=== PATIENT | female | born 1970 | race Caucasian/White ===

== ENCOUNTER → 2019-01-02 | Outpatient (CLI) | payer OTHER, SELFPAY ==
[2019-01-01 09:20] VITALS: BMI 23.0
== END | disposition home or self-care (01) ==
LOC: LABSPEC 14:14
PROVIDERS: Family Provider Nurse Practitioner Adult Health; PCP Nurse Practitioner Adult Health; Referring Provider Physician Assistant Medical; Visit Provider Physician Assistant Medical
DX: J02.9 Acute pharyngitis, unspecified (principal)
CPT/HCPCS: 87070

== ENCOUNTER → 2019-03-07 09:32 | Outpatient (CLI) | payer OTHER, SELFPAY ==
[2019-01-01 09:20] VITALS: BMI 23.0
--- NOTE | 2019-03-07 09:37 | CT_ITS ---
STUDY: CT ABDOMEN AND PELVIS WITHOUT CONTRAST REASON FOR EXAM: Female, 49 years old. Pelvic pain, bladder pressure RADIATION DOSAGE (If Supplied By Facility): CTDIvol = ( 6.04 ) mGy, DLP = ( 258.20 ) mGycm TECHNIQUE: Transaxial images were obtained from the dome of the diaphragm to the symphysis pubis without oral contrast, and without intravenous contrast. Sagittal and coronal images were reconstructed. Individualized dose optimization techniques were used for this CT. COMPARISON: None. FINDINGS: The visualized lung bases are unremarkable. The visualized portions of the heart are within normal limits. Normal liver. Normal gallbladder and extrahepatic biliary system. Normal spleen. Normal pancreas. Normal bilateral adrenal glands. Bilateral nonobstructing renal stones. No hydronephrosis, ureteral stone or ureteral dilatation. Normal visualized stomach. Normal small intestine. Normal colon. There is non-visualization of the appendix. Normal abdominal aorta. Normal inferior vena cava. Normal retroperitoneum. Normal urinary bladder. There is a small umbilical hernia containing fat. Mild levoscoliosis of the lumbar spine with degenerative disc disease. CT/Abdomen/Pelvis without Cont IMPRESSION: Bilateral nonobstructing renal stones. Electronically Signed: Dane Guerin MD at 10:02 EST Tel , Service support ,
== END ==
PROVIDERS: Family Provider Nurse Practitioner Adult Health; PCP Nurse Practitioner Adult Health; Referring Provider Nurse Practitioner Adult Health; Visit Provider Nurse Practitioner Adult Health
DX: R10.9 Unspecified abdominal pain (principal); N20.0 Calculus of kidney
CPT/HCPCS: 74176

== ENCOUNTER → 2019-09-20 12:13 | Outpatient (CLI) | payer OTHER, SELFPAY ==
[2019-01-01 09:20] VITALS: BMI 23.0
[2019-09-20 15:44] LABS: CRP, High Sensitivity Cardiac 0.64 mg/L
[2019-09-20 15:56] LABS: Erythrocyte Sedimentation Rate 4 mm/hr (0-20)
[2019-09-22 13:10] LABS: ANTINUCLEAR ANTIBODIES DIRECT Negative (Negative); Anti-dsDNA Ab 1 IU/mL (0-9)
== END ==
PROVIDERS: PCP Nurse Practitioner Adult Health; Visit Provider Family Medicine
DX: R21 Rash and other nonspecific skin eruption (principal)
CPT/HCPCS: 36415; 85652; 86038; 86141; 86225

== ENCOUNTER → 2020-03-26 15:22 | Outpatient (CLI) | payer OTHER, SELFPAY ==
[2019-01-01 09:20] VITALS: BMI 23.0
== END ==
PROVIDERS: PCP Nurse Practitioner Adult Health; Visit Provider Family Medicine
DX: Z20.828 Contact with and (suspected) exposure to other viral communicable diseases (principal)
CPT/HCPCS: 87635; U0003

== ENCOUNTER → 2020-03-29 12:13 | Outpatient (CLI) | payer OTHER, SELFPAY ==
[2019-01-01 09:20] VITALS: BMI 23.0
[2020-04-01 17:06] LABS: EBV Acute VCA IgM < 36.0 U/mL (0.0-35.9); EBV-VCA IgG > 600.0 U/mL (0.0-17.9)
== END ==
PROVIDERS: PCP Family Medicine; Referring Provider Family Medicine; Visit Provider Family Medicine
DX: B34.9 Viral infection, unspecified (principal)
CPT/HCPCS: 36415; 86664; 86665

== ENCOUNTER 2020-07-05 14:06 | Outpatient (RCR) | payer OTHER, SELFPAY ==
[2019-01-01 09:20] VITALS: BMI 23.0
[2020-07-05] MEDS: COVID-19 VACC, MRNA(PFIZER)/PF 30 MCG/0.3 ML SYRINGE IM (08:38)
[2020-07-26] MEDS: COVID-19 VACC, MRNA(PFIZER)/PF 30 MCG/0.3 ML SYRINGE IM (08:28)
== END 2020-07-05 23:59 ==
LOC: IMMUN 14:06
PROVIDERS: PCP Family Medicine; Visit Provider Family Medicine
DX: Z23 Encounter for immunization (principal)
CPT/HCPCS: 0001A; 0002A; 91300

== ENCOUNTER → 2022-05-01 | Outpatient (CLI) | payer OTHER, SELFPAY ==
[2022-05-01 10:27] LABS: Hemoglobin A1c 5.1 % (3.8-5.6)
[2022-05-01 10:55] LABS: AST(SGOT) 12 U/L (15-37); Alanine Aminotransfer ALT/SGPT 23 U/L (13-56); Albumin, Serum 3.3 g/dL (3.2-5.0); Alkaline Phosphatase 47 U/L (45-117); Anion Gap 7 (5-15); BUN 14 mg/dL (7-18); BUN/Creat Ratio 21.4 RATIO (10-20); Calcium,Total 9.1 mg/dL (8.5-10.1); Chloride 106 mmol/L (98-107); Cholesterol 166 mg/dL (200); Creatinine, Serum 0.65 mg/dL (0.55-1.02); EST Glomerular Filtration Rate 101 mL/min (>60); Est Glom Filt Rate - Afr Amer 122 mL/min (>60); Globulin 3.3 g/dL (2.2-4.2); Glucose 92 mg/dL (74-106); High Density Lipoprotein 65 mg/dL; Potassium 4.3 mmol/L (3.5-5.1); Protein, Total 6.6 g/dL (6.4-8.2); Sodium Level 138 mmol/L (136-145); Triglycerides 48 mg/dL; Very Low Density Lipoprotein 10 mg/dL (5-40)
[2022-05-05 14:21] LABS: HPV APTIMA, High Risk Negative (Negative); HPV Reflexed? YES, CHARGE PATIENT
== END | disposition home or self-care (01) ==
PROVIDERS: PCP Family Medicine; Visit Provider Nurse Practitioner Family
DX: Z01.419 Encounter for gynecological examination (general) (routine) without abnormal findings (principal); Z13.220 Encounter for screening for lipoid disorders; Z13.1 Encounter for screening for diabetes mellitus
CPT/HCPCS: 36415; 80053; 80061; 83036; 87624; 88175; G0145

== ENCOUNTER → 2022-05-07 | Outpatient (CLI) | payer OTHER, SELFPAY ==
--- NOTE | 2022-05-07 07:57 | BI_ITS ---
MAMMOGRAPHY - BILATERAL SCREENING REASON FOR EXAM: Female, 52 years old. Routine annual screening examination. PERTINENT HISTORY: Grandmother with breast cancer. TECHNIQUE: Digital bilateral breast ashly (3D mammographic acquisition) in the CC and MLO projections. 2-D mediolateral oblique (MLO) and craniocaudad (CC) views of both breasts were obtained. CAD: Full Field Digital Mammography with Computer Added Detection was performed. COMPARISON: No comparison mammograms available at this time. If any prior films become available, an addendum to this report can be generated. FINDINGS: Breast Composition: The breasts are extremely dense, which lowers the sensitivity of mammography. There are no dominant masses or suspicious calcifications. No other significant abnormalities are identified. BI/SCRN MAMM (CAD)W/ASHLY BILAT IMPRESSION: Negative screening mammogram. Yearly followup mammogram recommended. (A) ASSESSMENT CATEGORY: BIRADS Category 1: Negative. A letter regarding these results will be sent to the patient by the facility within 30 days. Approximately 10% of breast cancers are not detected by mammography. A normal mammogram should not delay biopsy of a clinically suspicious abnormality. [id number] Electronically Signed: Natan Hernandez MD at 9:01 EST ,
== END | disposition home or self-care (01) ==
LOC: OPBI 07:54
PROVIDERS: PCP Family Medicine; Visit Provider Nurse Practitioner Family
DX: Z12.31 Encounter for screening mammogram for malignant neoplasm of breast (principal); Z80.3 Family history of malignant neoplasm of breast
CPT/HCPCS: 77063; 77067

== ENCOUNTER 2023-01-13 11:49 | Inpatient (IN) | payer OTHER, SELFPAY ==
[2023-01-13 11:50] VITALS: BP 121/68; PULSE 80; RESP 20; TEMP 36.4; O2SAT 100; BMI 23.1
--- NOTE | 2023-01-13 12:09 | EX.ED.DYSGE1 ---
HPI History of Present Illness Chief Complaint: Abd Pain Informant: patient Onset/Context/Timing Onset: Days (2 days) Context: Gradual Onset Timing: Waxes and wanes Current Severity: Moderate Maximum Severity: Severe Narrative Narrative: Patient presents with 2-day history of left lower quadrant abdominal pain. No fever or chills. No nausea or vomiting. Patient was seen by PCP in the office this morning with significant tenderness on exam and sent to ER for further work-up. Patient states her urine was checked in the office and showed no sign of infection or blood. PFSH PFSH Medical History Hay fever Home Medications azithromycin 250 mg tablet (Zithromax Z-Won) See Rx Instructions PO .COMPLEX #6 tabs 01/01/19 [Rx Last Taken Unknown] ibuprofen 100 mg tablet (Advil) 200 mg PO Q6H 01/01/19 [History Last Taken Unknown] Allergy/AdvReac Type Severity Reaction Status Date / Time Penicillins [PCN] Allergy Rash Verified 01/13/23 12:45 Surgical History H/O section History of appendectomy History of bladder surgery Social History Smoking Status: Never smoker alcohol intake: never ROS ROS ED Constitutional Constitutional ED: Denies chills or fever(s) Eyes Eyes: Denies change in vision or discharge from eye(s) ENT ENT ED: Denies discharge from eye(s), rhinorrhea or sore throat Cardiovascular Cardiovascular: Denies chest pain or palpitations Respiratory/Chest Respiratory/Chest: Denies cough or dyspnea Gastrointestinal Gastrointestinal: Reports abdominal pain; Denies diarrhea, nausea or vomiting Musculoskeletal Musculoskeletal: Denies back pain or extremity pain Integumentary Denies Abrasions or rash Neurologic Neurologic: Denies headache(s) or weakness Psychiatric Psychiatric: Denies anxiety or depression Allergic/Immunologic Allergic/Immunologic ED: Denies lip swelling or urticaria EXAM Physical Exam Const Vital Signs: 01/13/23 11:50 Temperature 97.5 F L Temperature Source Temporal Pulse Rate 80 Respiratory Rate 20 H Blood Pressure 121/68 H Blood Pressure Mean 85 Pulse Ox 100 Oxygen Delivery Method Room Air Positive well nourished and well developed General Appearance ED: well developed HEENT Reports normocephalic and head/scalp atraumatic Eyes PERRL and EOMs intact bilaterally Neck supple Chest Wall inspection of chest normal and palpation of chest normal Resp normal respiratory effort and clear to auscultation bilaterally Cardio regular rate and regular rhythm GI GI Narrative: Moderate tenderness in the left lower quadrant. Hypoactive but present bowel sounds are noted. No palpable masses. Palpation: soft Back/Spine no CVA tenderness Extremity normal to inspection Neuro oriented x3 and no sensory deficits noted Sensorium / Orientation: alert Motor Exam: strength 5/5 throughout Psych mental status grossly normal Skin no rashes or lesions noted MDM MDM MDM Narrative Medical decision making narrative: Patient placed on ekg monitor. Patient given morphine and Zofran for pain and nausea. IV fluids initiated. Labwork obtained to evaluate for leukocytosis, anemia, and electrolyte derangement. CT scan of the abdomen pelvis with contrast obtained to evaluate for possible diverticulitis, obstruction, perforation. History & Record Review Discussion w/independent historian: Patient Lab Data Attestation: I reviewed the patient's lab results. Labs: Laboratory Results - last 24 hr 01/13/23 12:05 WBC 15.1 H RBC 4.57 Hgb 13.8 Hct 41.8 MCV 91.5 MCH 30.2 MCHC 33.0 RDW Std Deviation 44.7 H RDW Coeff of Johny 13.2 Plt Count 276 MPV 10.6 Immature Gran % (Auto) 0.400 Neut % (Auto) 75.2 H Lymph % (Auto) 13.2 L Zavala % (Auto) 10.5 H Eos % (Auto) 0.4 Baso % (Auto) 0.3 Absolute Neuts (auto) 11.3 H Absolute Lymphs (auto) 1.99 Nucleated RBC % 0 Differential Comment SCANNED Diff Path Review May foll Sodium 136 Potassium 3.7 Chloride 108 H Carbon Dioxide 24.0 Anion Gap 4 L BUN 15 Creatinine 0.71 Estim Creat Clear Calc 69.94 Est GFR (MDRD) Af Amer 112 Est GFR (MDRD) Non-Af 92 BUN/Creatinine Ratio 21.2 H Glucose 95 Calcium 8.6 Radiography Diagnostic Testing: Clinical Impression(s) from Imaging Studies Abdomen/Pelvis CT 01/13/23 13:42 IMPRESSION: Abnormal submucosal thickening of the mid and distal sigmoid colon with pericolonic inflammatory stranding, and microperforation. Findings consistent with an acute diverticulitis. No demonstrated abscess. However, neoplasm could have a similar appearance and further evaluation of the colon with colonoscopy is recommended once the acute inflammation has resolved. No suspicious solid or abnormality, punctate nonobstructing right renal stone 3.3 cm right pelvic cyst likely ovarian in origin, dedicated pelvic ultrasound recommended for further evaluation Electronically Signed: Homar Alex MD at 14:19 EDT Reading Location ID and State: [facility] / [place] , Service support , Treatment and Re-Evaluation :: CBC was elevated white count of 15.1 with 75% neutrophils. Hemoglobin is normal at 13.8. Chemistry studies are unremarkable with normal renal function. CT scan with contrast reveals diverticulitis with small microperforation. No evidence of abscess. There is also a 3.3 cm right pelvic cyst likely ovarian. Test results discussed with Dr. Recio, on-call for surgery. She reviewed the images. She asked the patient be admitted to the medicine service with IV antibiotics. Given her allergy to penicillin she will be covered with Cipro and Flagyl. Hospitalist will see the patient. Discharge Plan Triage Chief Complaint: Abd Pain ED Provider: Maritza Riddle Dx/Rx/DC Orders Clinical Impression: Diverticulitis Prescriptions: No Action ibuprofen [Advil] 100 mg tablet 200 mg PO Q6H azithromycin [Zithromax Z-Won] 250 mg tablet See Rx Instructions PO .COMPLEX Qty: 6 0RF Rx Instructions: take 500 mg today (day 1), then 250 mg for 4 days (days 2-5) PO Primary Care Provider: Khoa Diaz Referrals: Khoa Diaz MD [Primary Care Provider] - Disposition Disposition: Acute Care Hospital [facility]
[2023-01-13 12:21] LABS: Absolute Lymphocyte Count 1.99 X10^3/uL (0.83-4.51); Absolute Neutrophil Count 11.3 X10^3/uL (2.0-7.7); Basophil# 0.04 X10^3/uL; Basophil% 0.3 % (0-1); Eosinophil# 0.06 X10^3/uL; Eosinophils% 0.4 % (0-5); Hematocrit 41.8 % (37-47); Hemoglobin 13.8 g/dL (12.0-15.0); Lymphocyte # 1.99 X10^3/ul (0.83-4.51); Lymphocyte % 13.2 % (19-41); Mean Corpuscular Hgb 30.2 pg (27.0-32.0); Mean Corpuscular Volume 91.5 fL (81-99); Mean Platelet Vol. 10.6 fl (6.2-12.0); Monocyte# 1.58 X10^3/uL; Monocyte% 10.5 % (0-10); NRBC Flagged by Analyzer 0 % (0-5); Neutrophil # 11.33 X10^3/uL (2.7-7.7); Neutrophil % 75.2 % (47-70); POSITIVE DIFFERENTIAL YES; Platelet Count 276 K/mm3 (150-450); RBC Distribution Width CV 13.2 % (11.6-14.6); RBC Distribution Width SD 44.7 fl (35.1-43.9); Red Blood Count 4.57 M/mm3 (4.2-5.4); White Blood Count 15.1 K/mm3 (4.4-11.0)
[2023-01-13 12:33] LABS: Differential Indicated SCAN CRITERIA MET
[2023-01-13 12:38] LABS: Anion Gap 4 (5-15); BUN 15 mg/dL (7-18); BUN/Creat Ratio 21.2 RATIO (10-20); Calcium,Total 8.6 mg/dL (8.5-10.1); Chloride 108 mmol/L (98-107); Creatinine, Serum 0.71 mg/dL (0.55-1.02); EST Glomerular Filtration Rate 92 mL/min (>60); Est Glom Filt Rate - Afr Amer 112 mL/min (>60); Estimated Creatinine Clearance 69.94 ml/min; Glucose 95 mg/dL (74-106); Potassium 3.7 mmol/L (3.5-5.1); Sodium Level 136 mmol/L (136-145)
[2023-01-13] MEDS: Ondansetron 4 MG/2 ML Vial IV ×2 (12:41→18:45)
[2023-01-13] MEDS: 0.9% Normal Saline (1000mL) 1,000 ML 150 ML IV (12:41)
[2023-01-13] MEDS: Morphine 4 MG/ML Syringe IV (12:41)
--- NOTE | 2023-01-13 13:42 | CT_ITS ---
STUDY: CT ABDOMEN AND PELVIS WITH CONTRAST REASON FOR EXAM: Female, 52 years old. Left lower quadrant pain RADIATION DOSAGE (If Supplied By Facility): CTDIvol = ( 6.42 ) mGy, DLP = ( 299.44 ) mGycm TECHNIQUE: Transaxial images were obtained from the dome of the diaphragm to the symphysis pubis with oral contrast. Oral and amp; IV Gastrografin and amp; 100mL Isovue-300 was administered. Sagittal and coronal images were reconstructed. Individualized dose optimization techniques were used for this CT. COMPARISON: 03/07/2019 FINDINGS: The visualized lung bases are unremarkable. The visualized portions of the heart are within normal limits. Normal liver. Normal gallbladder and extrahepatic biliary system. Normal spleen. Normal pancreas. Normal bilateral adrenal glands. No obstructive uropathy, or suspicious solid renal lesion, there is a punctate nonobstructing right renal stone. Normal visualized stomach. Normal small intestine. Retained stool noted in the majority of the colon. In the mid and distal sigmoid colon there is abnormal submucosal thickening with pericolonic inflammatory stranding consistent with a likely acute diverticulitis. However, a neoplasm could have a similar appearance and further evaluation with colonoscopy is recommended once the acute inflammatory changes have resolved. There is evidence of microperforation but no abscess. There is non-visualization of the appendix. Normal abdominal aorta. Normal inferior vena cava. Normal retroperitoneum. Normal urinary bladder. Uterus is absent, there is a 3.3 cm right adnexal region cyst. Given the patient''s age, a dedicated pelvic ultrasound is recommended for further evaluation Normal abdominal wall. Normal osseous structures. CT/Abdomen/Pelvis WITH Contrast IMPRESSION: Abnormal submucosal thickening of the mid and distal sigmoid colon with pericolonic inflammatory stranding, and microperforation. Findings consistent with an acute diverticulitis. No demonstrated abscess. However, neoplasm could have a similar appearance and further evaluation of the colon with colonoscopy is recommended once the acute inflammation has resolved. No suspicious solid or abnormality, punctate nonobstructing right renal stone 3.3 cm right pelvic cyst likely ovarian in origin, dedicated pelvic ultrasound recommended for further evaluation Electronically Signed: Homar Alex MD at 14:19 EDT ,
[2023-01-13 13:44] LABS: Differential Comment SCANNED
--- NOTE | 2023-01-13 15:26 | HP.PCM.HOS_ITS ---
HPI - General General Date of Admission: 01/13/23 Date of Service: 01/13/23 Chief Complaint: Abdominal pain HPI Narrative SURAJ TORRES, is a 52 F who presents [facility] Medical History Hay fever Home Medications azithromycin 250 mg tablet (Zithromax Z-Won) See Rx Instructions PO .COMPLEX #6 tabs 01/01/19 [Rx Last Taken Unknown] ibuprofen 100 mg tablet (Advil) 200 mg PO Q6H 01/01/19 [History Last Taken Unknown] Allergy/AdvReac Type Severity Reaction Status Date / Time Penicillins [PCN] Allergy Rash Verified 01/13/23 12:45 Surgical History H/O section History of appendectomy History of bladder surgery Social History Smoking Status: Never smoker alcohol intake: never Vital Signs Vital Signs Vital Signs: 01/13/23 11:50 Temperature 97.5 F L Temperature Source Temporal Pulse Rate 80 Respiratory Rate 20 H Blood Pressure 121/68 H Blood Pressure Mean 85 Pulse Ox 100 Oxygen Delivery Method Room Air Weight Weight: 55.61 kg Body Mass Index (BMI) 23.1 Results Lab / Micro Data 01/13/23 12:05 01/13/23 12:05 Labs: Laboratory Results - last 24 hr 01/13/23 12:05: WBC 15.1 H, RBC 4.57, Hgb 13.8, Hct 41.8, MCV 91.5, MCH 30.2, MCHC 33.0, RDW Std Deviation 44.7 H, RDW Coeff of Johny 13.2, Plt Count 276, MPV 10.6, Immature Gran % (Auto) 0.400, Neut % (Auto) 75.2 H, Lymph % (Auto) 13.2 L, Dane % (Auto) 10.5 H, Eos % (Auto) 0.4, Baso % (Auto) 0.3, Absolute Neuts (auto) 11.3 H, Absolute Lymphs (auto) 1.99, Nucleated RBC % 0, Differential Comment SCANNED, Diff Path Review August, Sodium 136, Potassium 3.7, Chloride 108 H, Carbon Dioxide 24.0, Anion Gap 4 L, BUN 15, Creatinine 0.71, Estim Creat Clear Calc 69.94, Est GFR (MDRD) Af Amer 112, Est GFR (MDRD) Non-Af 92, BUN/Creatinine Ratio 21.2 H, Glucose 95, Calcium 8.6 Radiology Impression Abdomen/Pelvis CT 01/13/23 13:42 IMPRESSION: Abnormal submucosal thickening of the mid and distal sigmoid colon with pericolonic inflammatory stranding, and microperforation. Findings consistent with an acute diverticulitis. No demonstrated abscess. However, neoplasm could have a similar appearance and further evaluation of the colon with colonoscopy is recommended once the acute inflammation has resolved. No suspicious solid or abnormality, punctate nonobstructing right renal stone 3.3 cm right pelvic cyst likely ovarian in origin, dedicated pelvic ultrasound recommended for further evaluation Electronically Signed: Homar Alex MD at 14:19 EDT Reading Location ID and State: [address] [place] [address] , Service support , Assessment & Plan Assessment/Plan (1) Diverticulitis: (2) Leukocytosis: Charges/Coding Visit Charges Inpatient E&M: 00143 Init Hosp L2
--- NOTE | 2023-01-13 15:26 | PCM.HP.STD ---
HPI - General General Date of Admission: 01/13/23 Date of Service: 01/13/23 Chief Complaint: Abdominal pain HPI Narrative SURAJ TORRES, is a 52 F who presented to the emergency department at [facility] on 01/13/2023 complaining of a 2-day history of left lower quadrant pain. She saw her primary care physician this morning and had significant tenderness on exam so they referred her to the emergency department for further work-up. UA was reportedly obtained in the office and was unremarkable. She has had no fever or chills, no nausea or vomiting. She is never had anything like this previously. Abdominal surgeries consist of an appendectomy when she was young, hysterectomy, and 2 sections. Vital signs on presentation demonstrated temperature of 97.5, heart rate 80, blood pressure 121/68, respiratory to 20 and oxygen saturations were 100% on room air. CBC showed a leukocytosis at 15.1 with a 75.2% neutrophilia. Her chemistry panel was unremarkable. CT of the abdomen pelvis was performed and demonstrated abnormal submucosal thickening at the mid and distal sigmoid colon with pericolonic inflammatory stranding and microperforation consistent with acute diverticulitis and no abscess as well as a 3.3 cm right pelvic cyst that appears to originate from the ovary. [facility] Medical History Hay fever Home Medications azithromycin 250 mg tablet (Zithromax Z-Won) See Rx Instructions PO .COMPLEX #6 tabs 01/01/19 [Rx Last Taken Unknown] ibuprofen 100 mg tablet (Advil) 200 mg PO Q6H 01/01/19 [History Last Taken Unknown] Allergy/AdvReac Type Severity Reaction Status Date / Time Penicillins [PCN] Allergy Rash Verified 01/13/23 12:45 Family History (Updated 01/13/23 @ 16:[address] Jovanna Lino DO) Other Breast cancer Hypertension Leukemia Ovarian cancer Surgical History (Updated 01/13/23 @ 16:[address] Jovanna Lino DO) H/O section H/O: hysterectomy History of appendectomy History of bladder surgery Social History (Updated 01/13/23 @ 16:[address] Jovanna Lino DO) household members: spouse housing: house number of children: 2 Smoking Status: Never smoker alcohol intake: never substance use type: does not use ROS Constitutional Constitutional: Denies anorexia, change in weight, chills, fatigue, fever(s), malaise, night sweats, weakness or other Eyes Eyes: Denies blurry vision, change in eye color, change in vision, discharge from eye(s), double vision, erythema, eye pain, loss of vision or other ENT HEENT: Denies abnormal hearing, dysphagia, ear pain, epistaxis, headache(s), hearing loss, nasal congestion, nasal discharge, post nasal drip, sinus pressure, sore throat or other Cardiovascular Cardiovascular: Denies chest pain, claudication, dyspnea on exertion, edema, lightheadedness, orthopnea, palpitations, paroxysmal nocturnal dyspnea, rapid heart rate, syncope or other Respiratory/Chest Respiratory/Chest: Denies cough, dyspnea, excessive phlegm production, hemoptysis, productive cough, shortness of breath at rest, shortness of breath with exertion, wheezing or other Gastrointestinal Gastrointestinal: Reports abdominal pain and nausea; Denies coffee ground emesis, constipation, diarrhea, dyspepsia, hematemesis, hematochezia, loose stools, melena, vomiting or other Genitourinary Genitourinary: Denies burning urination, difficulty urinating, dysuria, hematuria, nocturia, urinary frequency, urinary hesitancy, urinary incontinence, urinary urgency or other Musculoskeletal Musculoskeletal: Denies arthralgias, back pain, joint pain, joint stiffness, joint swelling, myalgias, neck pain or other Neurologic Neurologic: Denies abnormal gait, abnormal speech, confusion, disequilibrium, dizziness, focal weakness, headache(s), numbness, paresthesias, seizure-like activity, seizures, syncope, tingling, tremor(s) or other Psychiatric Psychiatric: Denies anxiety, depression, homicidal ideation, suicidal ideation or other Endocrine Endocrinology: Denies change in body appearance, cold intolerance, excessive sweating, heat intolerance, polydipsia, polyuria or other Hematologic/Lymphatic Hematologic/Lymphatic: Denies anemia, easy bleeding, easy bruising, lymphadenopathy or other Allergic/Immunologic Allergic/Immunologic: Denies rhinitis, hives, eczemia, asthma or other Vital Signs Vital Signs Vital Signs: 01/13/23 11:50 Temperature 97.5 F L Temperature Source Temporal Pulse Rate 80 Respiratory Rate 20 H Blood Pressure 121/68 H Blood Pressure Mean 85 Pulse Ox 100 Oxygen Delivery Method Room Air Weight Weight: 55.61 kg Body Mass Index (BMI) 23.1 Physical Exam Const alert, oriented x3, average body habitus, healthy appearing and well nourished Constitutional Narrative: Very pleasant, middle-aged, white female, appears mildly uncomfortable, nontoxic appearing, at bedside General Appearance: cooperative HEENT normocephalic, head/scalp atraumatic, hearing grossly normal bilaterally and moist oral mucous membranes HEENT Narrative: Dentition is good, Mallampati is 2, no thrush Resp normal respiratory effort, no retractions, no use of accessory muscles and clear to auscultation bilaterally Auscultation: Negative for rales, rhonchi or wheezes Cardio regular rate, regular rhythm, S1 normal heart sound, S2 normal heart sound, no murmurs, no rub, no gallops and no clicks GI normal to inspection, nondistended, normoactive bowel sounds and soft to palpation GI Narrative: Tenderness with guarding left lower quadrant Extremity no clubbing, cyanosis or edema Extremity Narrative: Pedal pulses are 2+ Neuro oriented x3, CN's II-XII intact bilaterally, moves all extremities and no focal motor deficits Speech: speech normal Psych affect normal Psych Narrative: Very pleasant, interacts appropriately, eye contact is good Results Lab / Micro Data Attestation: I reviewed the patient's lab results. 01/13/23 12:05 01/13/23 12:05 Labs: Laboratory Results - last 24 hr 01/13/23 12:05: WBC 15.1 H, RBC 4.57, Hgb 13.8, Hct 41.8, MCV 91.5, MCH 30.2, MCHC 33.0, RDW Std Deviation 44.7 H, RDW Coeff of Johny 13.2, Plt Count 276, MPV 10.6, Immature Gran % (Auto) 0.400, Neut % (Auto) 75.2 H, Lymph % (Auto) 13.2 L, [place] % (Auto) 10.5 H, Eos % (Auto) 0.4, Baso % (Auto) 0.3, Absolute Neuts (auto) 11.3 H, Absolute Lymphs (auto) 1.99, Nucleated RBC % 0, Differential Comment SCANNED, Diff Path Review August, Sodium 136, Potassium 3.7, Chloride 108 H, Carbon Dioxide 24.0, Anion Gap 4 L, BUN 15, Creatinine 0.71, Estim Creat Clear Calc 69.94, Est GFR (MDRD) Af Amer 112, Est GFR (MDRD) Non-Af 92, BUN/Creatinine Ratio 21.2 H, Glucose 95, Calcium 8.6 Radiology Impression Abdomen/Pelvis CT 01/13/23 13:42 IMPRESSION: Abnormal submucosal thickening of the mid and distal sigmoid colon with pericolonic inflammatory stranding, and microperforation. Findings consistent with an acute diverticulitis. No demonstrated abscess. However, neoplasm could have a similar appearance and further evaluation of the colon with colonoscopy is recommended once the acute inflammation has resolved. No suspicious solid or abnormality, punctate nonobstructing right renal stone 3.3 cm right pelvic cyst likely ovarian in origin, dedicated pelvic ultrasound recommended for further evaluation Electronically Signed: Homar Alex MD at 14:19 EDT Reading Location ID and State: [address] [place] [address] , Service support , Assessment & Plan Assessment/Plan (1) Diverticulitis: (2) Leukocytosis: (3) Pelvic cyst: PLAN: Plan Diverticulitis -CT shows mid and distal sigmoid colon with pericolonic inflammatory stranding and microperforation with no abscess -N.p.o. -IV pain meds -IV fluids -Antiemetics as needed -General surgery consultation--> Dr. Hoffmann and aware Leukocytosis -Secondary to above -Repeat CBC in a.m. after initiation of antibiotics 3 cm right pelvic cyst -Suspected to be ovarian in origin -Would recommend outpatient follow-up with ultrasound -Patient has a family history of ovarian cancer in her mother DVT prophylaxis -Subcu Lovenox CODE STATUS Full code Charges/Coding Visit Charges Inpatient E&M: 93378 Init Hosp L2
[2023-01-13] MEDS: metroNIDAZOLE 500 MG/100 ML BAG 100 MG IV ×2 (16:00→22:17)
[2023-01-13] MEDS: HYDROmorphone 0.5 MG/0.5 ML SYRINGE IV (16:28)
[2023-01-13] MEDS: Ciprofloxacin 400 MG/200 ML BAG 200 MG IV ×2 (17:07→21:08)
[2023-01-13 17:08] VITALS: BP 116/68; PULSE 70; RESP 16; TEMP 36.2; O2SAT 100
--- NOTE | 2023-01-13 17:23 | EX.PCM.CON.S ---
Assessment & Plan Assessment/Plan (1) Diverticulitis of colon with perforation: (2) Leukocytosis: PLAN: Plan Did review CT abdomen pelvis personally and with the patient and her . We will plan for conservative management including n.p.o./IV fluids, IV antibiotics. We will keep patient n.p.o. until her pain improves and white blood cell count also improved. Discussed with patient that if she were to have increased white blood, increased pain or fevers she may need more urgent surgery. Patient will need colonoscopy in the future. Patient was agreeable with plan. Cecile Recio M.D. Pager: [phone] [facility] [address] [place] [address], [facility], [address] [place] [address] Office: [phone] HPI Consult Data Date of Consult: 01/13/23 HPI Narrative Reason for Consultation: Sigmoid diverticulitis with microperforation HPI Narrative: SURAJ TORRES, is a 52 F who presents to the ER due to left lower quadrant pain. Patient states she had this pain for 2 days but did get worse this morning. Patient's had a CT abdomen pelvis showed sigmoid diverticulitis with microperforation. Patient's never had previous colonoscopy or episode of diverticulitis. Patient did state that she ate nuts prior to the onset of pain. Patient had some nausea today after getting the pain meds otherwise denies any nausea or vomiting. Patient's abdominal surgeries include robotic hysterectomy, , laparoscopic appendectomy. Currently patient complaining of left-sided abdominal pain. Patient did get Cipro and Flagyl in the ER due to to penicillin allergy. Patient states her grandparent and uncle/aunt on her father side had colon cancer in their 70s to 80s. [facility] Medical History (Updated 01/13/23 @ 19:[address] Cecile Recio MD) Hay fever Home Medications NK 01/13/23 [History Last Taken Unknown] Allergy/AdvReac Type Severity Reaction Status Date / Time Penicillins [PCN] Allergy Rash Verified 01/13/23 12:45 Family History (Updated 01/13/23 @ 16:[address] Jovanna Lino DO) Other Breast cancer Hypertension Leukemia Ovarian cancer Surgical History (Updated 01/13/23 @ 16:[address] Jovanna Lino DO) H/O section H/O: hysterectomy History of appendectomy History of bladder surgery Social History (Updated 01/13/23 @ 16:[address] Jovanna Lino DO) household members: spouse housing: house number of children: 2 Smoking Status: Never smoker alcohol intake: never substance use type: does not use ROS Constitutional Constitutional: Reports anorexia; Denies fever(s) Eyes Eyes: Denies blurry vision ENT HEENT: Denies dysphagia Cardiovascular Cardiovascular: Denies chest pain Respiratory/Chest Respiratory/Chest: Denies cough Gastrointestinal Gastrointestinal: Reports abdominal pain and nausea; Denies melena or vomiting Genitourinary Genitourinary: Denies dysuria Musculoskeletal Musculoskeletal: Denies joint swelling Integumentary Integumentary: Denies jaundice Neurologic Neurologic: Denies dizziness Psychiatric Psychiatric: Denies anxiety or depression Hematologic/Lymphatic Hematologic/Lymphatic: Denies easy bleeding Physical Exam Const alert, oriented x3 and no apparent distress HEENT normocephalic and head/scalp atraumatic Resp normal respiratory effort Cardio regular rate GI soft to palpation; Negative for non-distended Palpation: tender LLQ (/Left mid abdomen, no peritoneal signs); Negative for guarding Extremity no clubbing, cyanosis or edema Neuro CN's II-XII intact bilaterally Psych mental status grossly normal Lab / Micro Data 01/13/23 12:05 01/13/23 12:05 Labs: Laboratory Results - last 24 hr 01/13/23 12:05: WBC 15.1 H, RBC 4.57, Hgb 13.8, Hct 41.8, MCV 91.5, MCH 30.2, MCHC 33.0, RDW Std Deviation 44.7 H, RDW Coeff of Johny 13.2, Plt Count 276, MPV 10.6, Immature Gran % (Auto) 0.400, Neut % (Auto) 75.2 H, Lymph % (Auto) 13.2 L, [place] % (Auto) 10.5 H, Eos % (Auto) 0.4, Baso % (Auto) 0.3, Absolute Neuts (auto) 11.3 H, Absolute Lymphs (auto) 1.99, Nucleated RBC % 0, Differential Comment SCANNED, Diff Path Review August, Sodium 136, Potassium 3.7, Chloride 108 H, Carbon Dioxide 24.0, Anion Gap 4 L, BUN 15, Creatinine 0.71, Estim Creat Clear Calc 69.94, Est GFR (MDRD) Af Amer 112, Est GFR (MDRD) Non-Af 92, BUN/Creatinine Ratio 21.2 H, Glucose 95, Calcium 8.6 Radiology Impression Abdomen/Pelvis CT 01/13/23 13:42 IMPRESSION: Abnormal submucosal thickening of the mid and distal sigmoid colon with pericolonic inflammatory stranding, and microperforation. Findings consistent with an acute diverticulitis. No demonstrated abscess. However, neoplasm could have a similar appearance and further evaluation of the colon with colonoscopy is recommended once the acute inflammation has resolved. No suspicious solid or abnormality, punctate nonobstructing right renal stone 3.3 cm right pelvic cyst likely ovarian in origin, dedicated pelvic ultrasound recommended for further evaluation Electronically Signed: Homar Alex MD at 14:19 EDT Reading Location ID and State: [address] [place] [address] , Service support , Charges/Coding Visit Charges Inpatient E&M: 95836 Init Hosp L3
[2023-01-13 17:55] VITALS: BMI 23.1
[2023-01-13 18:02] VITALS: BP 105/58; PULSE 70; RESP 18; TEMP 36.8
[2023-01-13] MEDS: Lactated Ringers 1,000 ML 100 ML IV (18:44)
[2023-01-13 19:50] VITALS: O2SAT 98
[2023-01-13 20:20] VITALS: BP 98/43; PULSE 98; RESP 16; TEMP 37.1; O2SAT 99
[2023-01-14 02:20] VITALS: BP 108/41; PULSE 75; RESP 16; TEMP 36.9; O2SAT 98
[2023-01-14] MEDS: Lactated Ringers 1,000 ML 100 ML IV ×2 (06:01→20:00)
[2023-01-14] MEDS: metroNIDAZOLE 500 MG/100 ML BAG 100 MG IV ×3 (06:02→21:10)
[2023-01-14] MEDS: HYDROmorphone 0.5 MG/0.5 ML SYRINGE IV ×4 (06:02→20:09)
[2023-01-14 06:37] LABS: Absolute Lymphocyte Count 1.96 X10^3/uL (0.83-4.51); Absolute Neutrophil Count 9.4 X10^3/uL (2.0-7.7); Basophil# 0.05 X10^3/uL; Basophil% 0.4 % (0-1); Eosinophil# 0.07 X10^3/uL; Eosinophils% 0.5 % (0-5); Hematocrit 36.5 % (37-47); Hemoglobin 12.2 g/dL (12.0-15.0); Lymphocyte # 1.96 X10^3/ul (0.83-4.51); Lymphocyte % 15.3 % (19-41); Mean Corp Hgb Conc 33.4 g/dL (32-36); Mean Corpuscular Hgb 30.9 pg (27.0-32.0); Mean Corpuscular Volume 92.4 fL (81-99); Mean Platelet Vol. 11.2 fl (6.2-12.0); Monocyte# 1.28 X10^3/uL; NRBC Flagged by Analyzer 0 % (0-5); Neutrophil # 9.44 X10^3/uL (2.7-7.7); Neutrophil % 73.4 % (47-70); Platelet Count 242 K/mm3 (150-450); RBC Distribution Width CV 13.2 % (11.6-14.6); RBC Distribution Width SD 44.9 fl (35.1-43.9); Red Blood Count 3.95 M/mm3 (4.2-5.4); White Blood Count 12.9 K/mm3 (4.4-11.0)
[2023-01-14 07:29] VITALS: O2SAT 97
[2023-01-14 07:29] LABS: ALB/GLOB Ratio 0.7 RATIO (0.9-2.4); AST(SGOT) 18 U/L (15-37); Alanine Aminotransfer ALT/SGPT 38 U/L (13-56); Albumin, Serum 2.7 g/dL (3.2-5.0); Alkaline Phosphatase 61 U/L (45-117); Anion Gap 7 (5-15); BUN 9 mg/dL (7-18); BUN/Creat Ratio 14.6 RATIO (10-20); Calcium,Total 8.5 mg/dL (8.5-10.1); Chloride 109 mmol/L (98-107); Creatinine, Serum 0.62 mg/dL (0.55-1.02); EST Glomerular Filtration Rate 108 mL/min (>60); Est Glom Filt Rate - Afr Amer 131 mL/min (>60); Estimated Creatinine Clearance 80.09 ml/min; Globulin 3.7 g/dL (2.2-4.2); Glucose 78 mg/dL (74-106); Magnesium 2.2 mg/dL (1.6-2.6); Phosphorus 2.2 mg/dL (2.5-4.9); Potassium 3.9 mmol/L (3.5-5.1); Protein, Total 6.4 g/dL (6.4-8.2); Sodium Level 138 mmol/L (136-145)
--- NOTE | 2023-01-14 07:56 | PCM.PN.HOSP ---
Reason for Visit Reason for Visit: Diagnoses Elevated white blood cell count, unspecified (01/13/23) Diverticulitis of large intestine with perforation and abscess without bleeding (01/13/23) Diverticulitis of intestine, part unspecified, without perforation or abscess without bleeding (01/13/23) Subjective Subjective Has felt a little dizzy after getting her pain medication but pain is improving, intermittently nauseous, no other specific complaints Objective Data Objective Data Vital Signs: Vital Signs Temp Pulse Resp BP Pulse Ox O2 Del Method 98.5 F 75 16 108/41 L 97 Room Air 01/14/23 02:20 01/14/23 02:20 01/14/23 02:20 01/14/23 02:20 01/14/23 07:29 01/14/23 07:29 Oxygen Delivery Method Room Air Weight: 55.61 kg Body Mass Index (BMI) 23.1 Intake & Output: Intake and Output for Last 24 Hours 01/12/23 01/13/23 01/14/23 23:59 23:59 23:59 Intake Total 1850 / 1850 675.00 / 675.00 Balance 1850 / 1850 675.00 / 675.00 Lab / Micro Data 01/14/23 05:40 01/14/23 05:40 Labs: Laboratory Results - last 24 hr 01/13/23 12:05: WBC 15.1 H, RBC 4.57, Hgb 13.8, Hct 41.8, MCV 91.5, MCH 30.2, MCHC 33.0, RDW Std Deviation 44.7 H, RDW Coeff of Johny 13.2, Plt Count 276, MPV 10.6, Immature Gran % (Auto) 0.400, Neut % (Auto) 75.2 H, Lymph % (Auto) 13.2 L, [place] % (Auto) 10.5 H, Eos % (Auto) 0.4, Baso % (Auto) 0.3, Absolute Neuts (auto) 11.3 H, Absolute Lymphs (auto) 1.99, Nucleated RBC % 0, Differential Comment SCANNED, Diff Path Review August, Sodium 136, Potassium 3.7, Chloride 108 H, Carbon Dioxide 24.0, Anion Gap 4 L, BUN 15, Creatinine 0.71, Estim Creat Clear Calc 69.94, Est GFR (MDRD) Af Amer 112, Est GFR (MDRD) Non-Af 92, BUN/Creatinine Ratio 21.2 H, Glucose 95, Calcium 8.6 01/14/23 05:40: WBC 12.9 H, RBC 3.95 L, Hgb 12.2, Hct 36.5 L, MCV 92.4, MCH 30.9, MCHC 33.4, RDW Std Deviation 44.9 H, RDW Coeff of Johny 13.2, Plt Count 242, MPV 11.2, Immature Gran % (Auto) 0.400, Neut % (Auto) 73.4 H, Lymph % (Auto) 15.3 L, [place] % (Auto) 10.0, Eos % (Auto) 0.5, Baso % (Auto) 0.4, Absolute Neuts (auto) 9.4 H, Absolute Lymphs (auto) 1.96, Nucleated RBC % 0, Sodium 138, Potassium 3.9, Chloride 109 H, Carbon Dioxide 22.0, Anion Gap 7, BUN 9, Creatinine 0.62, Estim Creat Clear Calc 80.09, Est GFR (MDRD) Af Amer 131, Est GFR (MDRD) Non-Af 108, BUN/Creatinine Ratio 14.6, Glucose 78, Calcium 8.5, Phosphorus 2.2 L, Magnesium 2.2, Total Bilirubin 1.00, AST 18, ALT 38, Alkaline Phosphatase 61, Total Protein 6.4, Albumin 2.7 L, Globulin 3.7, Albumin/Globulin Ratio 0.7 L Radiography Diagnostic Testing: Radiology Impression Abdomen/Pelvis CT 01/13/23 13:42 IMPRESSION: Abnormal submucosal thickening of the mid and distal sigmoid colon with pericolonic inflammatory stranding, and microperforation. Findings consistent with an acute diverticulitis. No demonstrated abscess. However, neoplasm could have a similar appearance and further evaluation of the colon with colonoscopy is recommended once the acute inflammation has resolved. No suspicious solid or abnormality, punctate nonobstructing right renal stone 3.3 cm right pelvic cyst likely ovarian in origin, dedicated pelvic ultrasound recommended for further evaluation Electronically Signed: Homar Alex MD at 14:19 EDT Reading Location ID and State: [address] [place] [address] , Service support , Physical Exam Narrative General: Alert, oriented, no apparent distress HEENT: Atraumatic, normocephalic Eyes: Anicteric, normal conjunctiva, extraocular movements grossly intact Neck: Supple Respiratory: Clear to auscultation bilaterally, normal respiratory effort Cardiovascular: Regular rate and rhythm GI: Soft, nondistended, no rebound, guarding, rigidity Extremities: No edema Musculoskeletal: Moving all extremities Neuro: No overt focal neurological deficits Skin: No rashes appreciated Psych: Cooperative Assessment & Plan Assessment/Plan (1) Diverticulitis: (2) Leukocytosis: (3) Pelvic cyst: PLAN: Plan Diverticulitis -CT shows mid and distal sigmoid colon with pericolonic inflammatory stranding and microperforation with no abscess -N.p.o. -IV pain meds -IV fluids -Antiemetics as needed -General surgery consultation--> Dr. Hoffmann and aware -01/14: Evaluated by general surgery, no acute surgical indication at this time, patient n.p.o. until clinically improving, IV fluids, supportive care, continue IV antibiotics, will blood cell count is improving today Leukocytosis -Secondary to above -Repeat CBC in a.m. after initiation of antibiotics -01/14: White blood cell count is improving 3 cm right pelvic cyst -Suspected to be ovarian in origin -Would recommend outpatient follow-up with ultrasound -Patient has a family history of ovarian cancer in her mother DVT prophylaxis -Subcu Lovenox CODE STATUS Full code Charges/Coding Visit Charges Inpatient E&M: 57109 Subs Hosp L1
[2023-01-14 08:00] VITALS: BP 104/59; PULSE 76; RESP 16; TEMP 36.8; O2SAT 98
--- NOTE | 2023-01-14 08:35 | PCM.PN.SRG ---
Subjective Subjective Patient is a planes of left lower quadrant pain. Much better after pain meds. Patient states it may be a little bit better. Patient with blood counts 12.9 from 15. Objective Data Objective Data Vital Signs: Vital Signs Temp Pulse Resp BP Pulse Ox O2 Del Method 98.5 F 75 16 108/41 L 97 Room Air 01/14/23 02:20 01/14/23 02:20 01/14/23 02:20 01/14/23 02:20 01/14/23 07:29 01/14/23 07:29 Oxygen Delivery Method Room Air Weight: 122 lb 9.6 oz Body Mass Index (BMI) 23.1 Intake & Output: Intake and Output for Last 24 Hours 01/12/23 01/13/23 01/14/23 23:59 23:59 23:59 Intake Total 1850 / 1850 675.00 / 675.00 Balance 1850 / 1850 675.00 / 675.00 Lab / Micro Data 01/14/23 05:40 01/14/23 05:40 Labs: Laboratory Results - last 24 hr 01/13/23 12:05: WBC 15.1 H, RBC 4.57, Hgb 13.8, Hct 41.8, MCV 91.5, MCH 30.2, MCHC 33.0, RDW Std Deviation 44.7 H, RDW Coeff of Johny 13.2, Plt Count 276, MPV 10.6, Immature Gran % (Auto) 0.400, Neut % (Auto) 75.2 H, Lymph % (Auto) 13.2 L, [place] % (Auto) 10.5 H, Eos % (Auto) 0.4, Baso % (Auto) 0.3, Absolute Neuts (auto) 11.3 H, Absolute Lymphs (auto) 1.99, Nucleated RBC % 0, Differential Comment SCANNED, Diff Path Review May , Sodium 136, Potassium 3.7, Chloride 108 H, Carbon Dioxide 24.0, Anion Gap 4 L, BUN 15, Creatinine 0.71, Estim Creat Clear Calc 69.94, Est GFR (MDRD) Af Amer 112, Est GFR (MDRD) Non-Af 92, BUN/Creatinine Ratio 21.2 H, Glucose 95, Calcium 8.6 01/14/23 05:40: WBC 12.9 H, RBC 3.95 L, Hgb 12.2, Hct 36.5 L, MCV 92.4, MCH 30.9, MCHC 33.4, RDW Std Deviation 44.9 H, RDW Coeff of Johny 13.2, Plt Count 242, MPV 11.2, Immature Gran % (Auto) 0.400, Neut % (Auto) 73.4 H, Lymph % (Auto) 15.3 L, [place] % (Auto) 10.0, Eos % (Auto) 0.5, Baso % (Auto) 0.4, Absolute Neuts (auto) 9.4 H, Absolute Lymphs (auto) 1.96, Nucleated RBC % 0, Sodium 138, Potassium 3.9, Chloride 109 H, Carbon Dioxide 22.0, Anion Gap 7, BUN 9, Creatinine 0.62, Estim Creat Clear Calc 80.09, Est GFR (MDRD) Af Amer 131, Est GFR (MDRD) Non-Af 108, BUN/Creatinine Ratio 14.6, Glucose 78, Calcium 8.5, Phosphorus 2.2 L, Magnesium 2.2, Total Bilirubin 1.00, AST 18, ALT 38, Alkaline Phosphatase 61, Total Protein 6.4, Albumin 2.7 L, Globulin 3.7, Albumin/Globulin Ratio 0.7 L Radiography Diagnostic Testing: Radiology Impression Abdomen/Pelvis CT 01/13/23 13:42 IMPRESSION: Abnormal submucosal thickening of the mid and distal sigmoid colon with pericolonic inflammatory stranding, and microperforation. Findings consistent with an acute diverticulitis. No demonstrated abscess. However, neoplasm could have a similar appearance and further evaluation of the colon with colonoscopy is recommended once the acute inflammation has resolved. No suspicious solid or abnormality, punctate nonobstructing right renal stone 3.3 cm right pelvic cyst likely ovarian in origin, dedicated pelvic ultrasound recommended for further evaluation Electronically Signed: Homar Alex MD at 14:19 EDT Reading Location ID and State: [facility] / [place] , Service support , Physical Exam Const oriented x3 and no apparent distress Resp normal respiratory effort Cardio regular rate GI soft to palpation Palpation: tender LLQ (And left mid abdomen, no peritoneal signs) Assessment & Plan Assessment/Plan (1) Diverticulitis of colon with perforation: (2) Leukocytosis: PLAN: Plan Continue n.p.o./IV fluids until pain improved/resolved Continue Cipro and Flagyl IV Leukocytosis improved 12.9 from 15 Continue ambulation Cecile Recio M.D. Pager: [phone] [facility] [address] [place] [address], [facility], [address] [place] [address] Office: [phone] Charges/Coding Visit Charges Inpatient E&M: 57132 Subs Hosp L2
[2023-01-14] MEDS: Ciprofloxacin 400 MG/200 ML BAG 200 MG IV ×2 (09:29→23:12)
[2023-01-14] MEDS: Enoxaparin 40 MG/0.4 ML Syringe SC (09:32)
[2023-01-14 11:19] LABS: Pathologist Review Reviewed
[2023-01-14] MEDS: Sodium Phosphate/Na Biphos 30 MMOL in 0.9% Normal Saline (250mL Bag) 250 ML 62.5 MMOL IV (11:32)
--- NOTE | 2023-01-14 11:50 | CASEMGMT ---
RN SAVANNA Face to Face with patient for initial transition planning/care coordination assessment. RN SAVANNA introduced self and role at [facility]. Patient lying in bed, alert and oriented. Patient willing to participate in assessment and is able to answer all questions appropriately. Care providers, pharmacy, and demographics verified. Patient wishes to discharge home. Patient states she has no further needs or concerns at this time. CM to follow for discharge planning needs that may arise. PCP:Joe Specialists:Pt denies Preferred Pharmacy:[facility] Insurance:[employer] Prescription Benefit: yes LNOK:Ricardo Sanders, Living Arrangements:Pt lives with in a two story home with 1 step to enter. Pt reports she is I in ADL's and denies concerns at home. Transportation: Pt drives self and denies concerns with transportation. DME:None HHC:No hx of SNF:No hx of Disposition Plan: Home
[2023-01-14] MEDS: Ondansetron 4 MG/2 ML Vial IV (14:32)
[2023-01-14] MEDS: 0.9% Saline Lock 10 ML Syringe IV (14:32)
[2023-01-14 17:00] VITALS: BP 97/56; PULSE 69; RESP 16; TEMP 37; O2SAT 98
[2023-01-14] MEDS: proCHLORPERazine 10 MG/2 ML Vial 5 MG IV (20:08)
[2023-01-14 20:11] VITALS: BP 105/50; PULSE 69; RESP 16; TEMP 36.8; O2SAT 97
[2023-01-15 02:15] VITALS: BP 99/54; PULSE 70; RESP 16; TEMP 36.3; O2SAT 99
[2023-01-15 05:55] LABS: Absolute Lymphocyte Count 1.51 X10^3/uL (0.83-4.51); Absolute Neutrophil Count 6.1 X10^3/uL (2.0-7.7); Basophil# 0.07 X10^3/uL; Basophil% 0.8 % (0-1); Eosinophil# 0.21 X10^3/uL; Eosinophils% 2.3 % (0-5); Hematocrit 33.7 % (37-47); Hemoglobin 10.9 g/dL (12.0-15.0); Lymphocyte # 1.51 X10^3/ul (0.83-4.51); Lymphocyte % 16.8 % (19-41); Mean Corp Hgb Conc 32.3 g/dL (32-36); Mean Corpuscular Hgb 30.2 pg (27.0-32.0); Mean Corpuscular Volume 93.4 fL (81-99); Monocyte# 1.05 X10^3/uL; Monocyte% 11.7 % (0-10); NRBC Flagged by Analyzer 0 % (0-5); Neutrophil # 6.11 X10^3/uL (2.7-7.7); Platelet Count 232 K/mm3 (150-450); RBC Distribution Width CV 12.9 % (11.6-14.6); RBC Distribution Width SD 44.2 fl (35.1-43.9); Red Blood Count 3.61 M/mm3 (4.2-5.4)
[2023-01-15] MEDS: metroNIDAZOLE 500 MG/100 ML BAG 100 MG IV ×3 (06:24→21:01)
[2023-01-15] MEDS: Lactated Ringers 1,000 ML 100 ML IV ×2 (06:25→20:39)
[2023-01-15 06:30] LABS: Anion Gap 8 (5-15); BUN 11 mg/dL (7-18); BUN/Creat Ratio 20.7 RATIO (10-20); Calcium,Total 8.3 mg/dL (8.5-10.1); Chloride 110 mmol/L (98-107); Creatinine, Serum 0.53 mg/dL (0.55-1.02); EST Glomerular Filtration Rate 128 mL/min (>60); Est Glom Filt Rate - Afr Amer 155 mL/min (>60); Glucose 74 mg/dL (74-106); Potassium 3.8 mmol/L (3.5-5.1); Sodium Level 138 mmol/L (136-145)
--- NOTE | 2023-01-15 07:07 | PN.HOSP_ITS ---
Reason for Visit Reason for Visit: Diagnoses Elevated white blood cell count, unspecified (01/13/23) Diverticulitis of large intestine with perforation and abscess without bleeding (01/13/23) Diverticulitis of intestine, part unspecified, without perforation or abscess without bleeding (01/13/23) Subjective Subjective Beginning to feel better, still notices a little bit of an abnormal sensation in her abdomen but pain improving no more nausea Objective Data Objective Data Vital Signs: Vital Signs Temp Pulse Resp BP Pulse Ox O2 Del Method 97.4 F L 70 16 99/54 L 99 Room Air 01/15/23 02:15 01/15/23 02:15 01/15/23 02:15 01/15/23 02:15 01/15/23 02:15 01/15/23 02:15 Oxygen Delivery Method Room Air Weight: 55.61 kg Body Mass Index (BMI) 23.1 Intake & Output: Intake and Output for Last 24 Hours 01/13/23 01/14/23 01/15/23 23:59 23:59 23:59 Intake Total 1850 / 1850 2433.33 / 2433.33 1200 / 1200 Balance 1850 / 1850 2433.33 / 2433.33 1200 / 1200 Lab / Micro Data 01/15/23 05:37 01/15/23 05:37 Labs: Laboratory Results - last 24 hr 01/13/23 12:05: Diff Path Review Reviewed 01/14/23 05:40: Sodium 138, Potassium 3.9, Chloride 109 H, Carbon Dioxide 22.0, Anion Gap 7, BUN 9, Creatinine 0.62, Estim Creat Clear Calc 80.09, Est GFR (MDRD) Af Amer 131, Est GFR (MDRD) Non-Af 108, BUN/Creatinine Ratio 14.6, Glucose 78, Calcium 8.5, Phosphorus 2.2 L, Magnesium 2.2, Total Bilirubin 1.00, AST 18, ALT 38, Alkaline Phosphatase 61, Total Protein 6.4, Albumin 2.7 L, Globulin 3.7, Albumin/Globulin Ratio 0.7 L 01/15/23 05:37: WBC 9.0, RBC 3.61 L, Hgb 10.9 L, Hct 33.7 L, MCV 93.4, MCH 30.2, MCHC 32.3, RDW Std Deviation 44.2 H, RDW Coeff of Johny 12.9, Plt Count 232, MPV 11.0, Immature Gran % (Auto) 0.400, Neut % (Auto) 68.0, Lymph % (Auto) 16.8 L, [place] % (Auto) 11.7 H, Eos % (Auto) 2.3, Baso % (Auto) 0.8, Absolute Neuts (auto) 6.1, Absolute Lymphs (auto) 1.51, Nucleated RBC % 0, Sodium 138, Potassium 3.8, Chloride 110 H, Carbon Dioxide 20.0 L, Anion Gap 8, BUN 11, Creatinine 0.53 L, Estim Creat Clear Calc 93.70, Est GFR (MDRD) Af Amer 155, Est GFR (MDRD) Non-Af 128, BUN/Creatinine Ratio 20.7 H, Glucose 74, Calcium 8.3 L Physical Exam Narrative General: Alert, oriented, no apparent distress HEENT: Atraumatic, normocephalic Eyes: Anicteric, normal conjunctiva, extraocular movements grossly intact Neck: Supple Respiratory: Clear to auscultation bilaterally, normal respiratory effort Cardiovascular: Regular rate and rhythm GI: Soft, nondistended, no rebound, guarding, rigidity Extremities: No edema Musculoskeletal: Moving all extremities Neuro: No overt focal neurological deficits Skin: No rashes appreciated Psych: Cooperative Assessment & Plan Assessment/Plan (1) Diverticulitis: (2) Leukocytosis: (3) Pelvic cyst: PLAN: Plan Diverticulitis -CT shows mid and distal sigmoid colon with pericolonic inflammatory stranding and microperforation with no abscess -N.p.o. -IV pain meds -IV fluids -Antiemetics as needed -General surgery consultation--> Dr. Hoffmann and aware -01/14: Evaluated by general surgery, no acute surgical indication at this time, patient n.p.o. until clinically improving, IV fluids, supportive care, continue IV antibiotics, will blood cell count is improving today -01/15: Diet advancement per general surgery, continue antibiotics with plan for Cipro and Flagyl on DC for total of 10 days, white blood cell count now within normal limits, possible DC tomorrow pending progress and if patient tolerates diet Leukocytosis -Secondary to above -Repeat CBC in a.m. after initiation of antibiotics -01/14: White blood cell count is improving -01/15: Resolved, continue current management Anemia -10.9, no evidence of blood loss, was 13.8 on presentation but has received a decent mount of IV fluids and all cell lines have decreased, continue to monitor 3 cm right pelvic cyst -Suspected to be ovarian in origin -Would recommend outpatient follow-up with ultrasound -Patient has a family history of ovarian cancer in her mother DVT prophylaxis -Subcu Lovenox CODE STATUS Full code Charges/Coding Visit Charges Inpatient E&M: 90519 Subs Hosp L1
--- NOTE | 2023-01-15 07:52 | PN.SURG_ITS ---
Subjective Subjective Patient's pain is much improved, last pain meds yesterday afternoon. Patient rates it may be at 2 has no pain up walking around. Patient white blood count is within normal limits. Objective Data Objective Data Vital Signs: Vital Signs Temp Pulse Resp BP Pulse Ox O2 Del Method 97.4 F L 70 16 99/54 L 99 Room Air 01/15/23 02:15 01/15/23 02:15 01/15/23 02:15 01/15/23 02:15 01/15/23 02:15 01/15/23 02:15 Oxygen Delivery Method Room Air Weight: 122 lb 9.585 oz Body Mass Index (BMI) 23.1 Intake & Output: Intake and Output for Last 24 Hours 01/13/23 01/14/23 01/15/23 23:59 23:59 23:59 Intake Total 1850 / 1850 2433.33 / 2433.33 1200 / 1200 Balance 1850 / 1850 2433.33 / 2433.33 1200 / 1200 Lab / Micro Data 01/15/23 05:37 01/15/23 05:37 Labs: Laboratory Results - last 24 hr 01/13/23 12:05: Diff Path Review Reviewed 01/15/23 05:37: WBC 9.0, RBC 3.61 L, Hgb 10.9 L, Hct 33.7 L, MCV 93.4, MCH 30.2, MCHC 32.3, RDW Std Deviation 44.2 H, RDW Coeff of Johny 12.9, Plt Count 232, MPV 11.0, Immature Gran % (Auto) 0.400, Neut % (Auto) 68.0, Lymph % (Auto) 16.8 L, [place] % (Auto) 11.7 H, Eos % (Auto) 2.3, Baso % (Auto) 0.8, Absolute Neuts (auto) 6.1, Absolute Lymphs (auto) 1.51, Nucleated RBC % 0, Sodium 138, Potassium 3.8, Chloride 110 H, Carbon Dioxide 20.0 L, Anion Gap 8, BUN 11, Creatinine 0.53 L, Estim Creat Clear Calc 93.70, Est GFR (MDRD) Af Amer 155, Est GFR (MDRD) Non-Af 128, BUN/Creatinine Ratio 20.7 H, Glucose 74, Calcium 8.3 L Physical Exam Const oriented x3 and no apparent distress Resp normal respiratory effort Cardio regular rate GI soft to palpation Palpation: tender LLQ (minimal LLQ & left mid abdomen, no peritoneal signs) Assessment & Plan Assessment/Plan (1) Diverticulitis of colon with perforation: (2) Leukocytosis: PLAN: Plan Okay for clears today likely advance to low fiber tomorrow and DC home tomorrow Continue Cipro and Flagyl IV--plan to DC with Cipro and Flagyl p.o. for total of 10 days. Leukocytosis within normal limits from 12.9 Continue ambulation Cecile Recio M.D. Pager: [phone] [facility] [address] [place] [address], [facility], [address] [place] [address] Office: [phone] Charges/Coding Visit Charges Inpatient E&M: 17277 Subs Hosp L2
[2023-01-15 09:04] VITALS: BP 105/61; PULSE 64; RESP 18; TEMP 36.6; O2SAT 99
[2023-01-15] MEDS: Enoxaparin 40 MG/0.4 ML Syringe SC (11:05)
[2023-01-15] MEDS: Ciprofloxacin 400 MG/200 ML BAG 200 MG IV ×2 (11:06→22:06)
[2023-01-15 12:50] VITALS: BP 108/63; PULSE 64; RESP 18; TEMP 36.9; O2SAT 100
[2023-01-15] MEDS: 0.9% Saline Lock 10 ML Syringe IV ×2 (13:52→21:02)
[2023-01-15 17:55] VITALS: BP 120/83; PULSE 72; RESP 18; TEMP 37.2; O2SAT 97
[2023-01-15 20:41] VITALS: BP 105/56; PULSE 59; RESP 18; TEMP 36.8; O2SAT 98
[2023-01-16 03:55] VITALS: BP 117/71; PULSE 58; RESP 18; TEMP 36.6; O2SAT 98
[2023-01-16] MEDS: metroNIDAZOLE 500 MG/100 ML BAG 100 MG IV (05:44)
[2023-01-16 06:32] VITALS: O2SAT 96
[2023-01-16 07:10] LABS: Absolute Lymphocyte Count 1.31 X10^3/uL (0.83-4.51); Absolute Neutrophil Count 3.6 X10^3/uL (2.0-7.7); Basophil# 0.06 X10^3/uL; Eosinophil# 0.14 X10^3/uL; Eosinophils% 2.4 % (0-5); Hematocrit 34.1 % (37-47); Hemoglobin 11.6 g/dL (12.0-15.0); Lymphocyte # 1.31 X10^3/ul (0.83-4.51); Lymphocyte % 22.1 % (19-41); Mean Corpuscular Hgb 30.9 pg (27.0-32.0); Mean Corpuscular Volume 90.7 fL (81-99); Mean Platelet Vol. 10.9 fl (6.2-12.0); Monocyte# 0.78 X10^3/uL; Monocyte% 13.1 % (0-10); NRBC Flagged by Analyzer 0 % (0-5); Neutrophil # 3.63 X10^3/uL (2.7-7.7); Neutrophil % 61.1 % (47-70); Platelet Count 251 K/mm3 (150-450); RBC Distribution Width CV 12.9 % (11.6-14.6); RBC Distribution Width SD 42.8 fl (35.1-43.9); Red Blood Count 3.76 M/mm3 (4.2-5.4); White Blood Count 5.9 K/mm3 (4.4-11.0)
[2023-01-16 07:36] LABS: Anion Gap 6 (5-15); BUN 7 mg/dL (7-18); BUN/Creat Ratio 12.6 RATIO (10-20); Calcium,Total 8.6 mg/dL (8.5-10.1); Chloride 109 mmol/L (98-107); Creatinine, Serum 0.56 mg/dL (0.55-1.02); EST Glomerular Filtration Rate 122 mL/min (>60); Est Glom Filt Rate - Afr Amer 147 mL/min (>60); Estimated Creatinine Clearance 88.68 ml/min; Glucose 108 mg/dL (74-106); Potassium 3.7 mmol/L (3.5-5.1); Sodium Level 138 mmol/L (136-145)
[2023-01-16 08:02] VITALS: BP 113/62; PULSE 58; RESP 16; TEMP 37.2; O2SAT 98
--- NOTE | 2023-01-16 08:02 | PN.SURG_ITS ---
Subjective Subjective Patient denies any abdominal pain been up walking. Objective Data Objective Data Vital Signs: Vital Signs Temp Pulse Resp BP Pulse Ox O2 Del Method 97.9 F 58 L 18 117/71 96 Room Air 01/16/23 03:55 01/16/23 03:55 01/16/23 03:55 01/16/23 03:55 01/16/23 06:32 01/16/23 06:32 Oxygen Delivery Method Room Air Weight: 122 lb 9.585 oz Body Mass Index (BMI) 23.1 Intake & Output: Intake and Output for Last 24 Hours 01/14/23 01/15/23 01/16/23 23:59 23:59 23:59 Intake Total 2433.33 / 2433.33 3700 / 3700 500 / 500 Balance 2433.33 / 2433.33 3700 / 3700 500 / 500 Lab / Micro Data 01/16/23 06:43 01/16/23 06:43 Labs: Laboratory Results - last 24 hr 01/16/23 06:43: WBC 5.9, RBC 3.76 L, Hgb 11.6 L, Hct 34.1 L, MCV 90.7, MCH 30.9, MCHC 34.0 D, RDW Std Deviation 42.8, RDW Coeff of [place]jh[place] 12.9, Plt Count 251, MPV 10.9, Immature Gran % (Auto) 0.300, Neut % (Auto) 61.1, Lymph % (Auto) 22.1, [place] % (Auto) 13.1 H, Eos % (Auto) 2.4, Baso % (Auto) 1.0, Absolute Neuts (auto) 3.6, Absolute Lymphs (auto) 1.31, Nucleated RBC % 0, Sodium 138, Potassium 3.7, Chloride 109 H, Carbon Dioxide 23.0, Anion Gap 6, BUN 7, Creatinine 0.56, Estim Creat Clear Calc 88.68, Est GFR (MDRD) Af Amer 147, Est GFR (MDRD) Non-Af 122, BUN/Creatinine Ratio 12.6, Glucose 108 H, Calcium 8.6 Physical Exam Const oriented x3 Resp normal respiratory effort Cardio regular rate GI soft to palpation and non-tender Assessment & Plan Assessment/Plan (1) Diverticulitis of colon with perforation: (2) Leukocytosis: PLAN: Plan Okay for low fiber diet today and she can DC home on that for 3 to 4 weeks? follow-up in office about 2 weeks Continue Cipro and Flagyl on discharge for total of 10 days Continue ambulation Cecile Recio M.D. Pager: [phone] [facility] [address] [place] [address], [facility], [address] [place] [address] Office: [phone] Charges/Coding Visit Charges Inpatient E&M: 93672 Subs Hosp L2
--- NOTE | 2023-01-16 09:40 | PCM.DC ---
Discharge Instructions Diet Discharge Diet: - (Low fiber diet) Activity Discharge Activity: Return to Normal Activity Follow Up Care Test Results: Test results from this visit will be discussed in further detail at your follow-up appointment, if applicable. Discharge Plan Admission Admit Date/Time: 01/13/23 15:21 Primary Reason for Your Visit: Abdominal pain Attending Provider: Beth Ernst Primary Care Provider: Khoa Diaz Consulting Providers: Cecile Recio; Jovanna Lino Instructions Patient Instructions: Diverticulitis Dc Additional Instructions / Restrictions: DISCHARGE INSTRUCTIONS PLEASE READ *Please take this with you to your next doctors appointment* -You will need a colonoscopy on an outpatient basis, this can be scheduled after discharge typically 6 to 8 weeks after improvement -Please follow-up with Dr. Recio with surgery upon discharge in 1-2 weeks. Please call their office to schedule hospital follow-up appointment upon discharge. -Eat a diet low in fiber while recovering. -Foods to include: flake cereal, mashed potatoes, pancakes, waffles, pasta, white bread, rice, applesauce, bananas, eggs, fish, poultry, tofu, and well-cooked vegetables -Drink 6 to 8 glasses of water every day, unless told otherwise -Use a heating pad or hot water bottle to reduce abdominal cramping or pain -If you have not had a colonoscopy within the past year it is recommended that you have one in 6 to 8 weeks. This can be coordinated through your primary care physician's office -You will need a pelvic ultrasound on an outpatient basis due to a cyst seen incidentally on imaging -Please call your primary care provider's office upon discharge to schedule a hospital follow up within 1 week. -For any concerning signs or symptoms please call 911 or proceed to the nearest emergency department Discharge Orders/Prescriptions Prescriptions: New ciprofloxacin HCl 500 mg tablet 500 mg PO BID Qty: 16 0RF metronidazole 500 mg tablet 500 mg PO Q8H Qty: 24 0RF Referrals / Follow Up: Khoa Diaz MD [Primary Care Provider] - Within 1 Week Cecile Recio MD [Med Staff - Active Staff] - Within 2 Weeks Disposition Disposition (needs filled in before D/C Order can be placed): Home, Self Care
[2023-01-16] MEDS: Ciprofloxacin 400 MG/200 ML BAG 200 MG IV (09:51)
--- NOTE | 2023-01-16 09:54 | DS.PCM_ITS ---
Providers Date of Admission: 01/13/23 Date of Discharge: 01/16/23 Primary Care Physician: Dr. Khoa Diaz MD Consultations 01/13/23 18:05 Consult: General Surgery Routine Consulting Provider: Cecile Recio Reason for Consult: Diverticulitis with Microperforation EMERGENT Consult: No MD Notified: Yes Date Notified: 01/13/23 Time Notified: 15:25 Method of Notification: ED Physician Initiated Reason For Visit: DIVERTICULITIS WITH MICROPERFORATION Diagnosis Discharge Diagnosis (1) Diverticulitis of colon with perforation: Status: Acute Code(s): K57.20 - Diverticulitis of large intestine with perforation and abscess without bleeding (2) Leukocytosis: Status: Acute Code(s): D72.829 - Elevated white blood cell count, unspecified Plan #Diverticulitis w/ microperforation #Leukocytosis resolved #Anemia- improving #3 cm right pelvic cyst Medications at Discharge Home Medications ciprofloxacin HCl 500 mg tablet 500 mg PO BID #16 tabs 01/16/23 metronidazole 500 mg tablet 500 mg PO Q8H #24 tabs 01/16/23 Hospital Course Summary of Care Provided Minutes Spent on Discharge: 35 Hospital Course: SURAJ TORRES, is a 52 F who presented to the emergency department at [facility] on 01/13/2023 complaining of a 2-day history of left lower quadrant pain. She had a CT scan which showed mid to distal sigmoid colon with pericolonic inflammatory stranding and microperforation with no abscess. Surgery was consulted and recommended Cipro and Flagyl as well as supportive care. Patient improved with antibiotics and supportive care and diet was tolerated. On day of discharge she tolerated diet and had no further abdominal pain. She was informed of pelvic cyst and need to follow-up and she verbalized understanding discharged home with the following discharge instructions and in stable condition. -You will need a colonoscopy on an outpatient basis, this can be scheduled after discharge typically 6 to 8 weeks after improvement -Please follow-up with Dr. Recio with surgery upon discharge in 1-2 weeks. Please call their office to schedule hospital follow-up appointment upon discharge. -Eat a diet low in fiber while recovering. -Foods to include: flake cereal, mashed potatoes, pancakes, waffles, pasta, white bread, rice, applesauce, bananas, eggs, fish, poultry, tofu, and well-cooked vegetables -Drink 6 to 8 glasses of water every day, unless told otherwise -Use a heating pad or hot water bottle to reduce abdominal cramping or pain -If you have not had a colonoscopy within the past year it is recommended that you have one in 6 to 8 weeks. This can be coordinated through your primary care physician's office -You will need a pelvic ultrasound on an outpatient basis due to a cyst seen incidentally on imaging -Please call your primary care provider's office upon discharge to schedule a hospital follow up within 1 week. -For any concerning signs or symptoms please call 911 or proceed to the nearest emergency department Physical Exam Narrative General: Alert, oriented, no apparent distress HEENT: Atraumatic, normocephalic Eyes: Anicteric, normal conjunctiva, extraocular movements grossly intact Neck: Supple Respiratory: Clear to auscultation bilaterally, normal respiratory effort Cardiovascular: Regular rate and rhythm GI: Soft, nontender, nondistended Extremities: No edema Musculoskeletal: Moving all extremities Neuro: No overt focal neurological deficits Skin: No rashes appreciated Psych: Cooperative Weight / BMI Weight Weight: 55.61 kg Body Mass Index (BMI) 23.1 ABG / Lab / Microbiology Data 01/16/23 06:43 01/16/23 06:43 Laboratory: Laboratory Results - last 24 hr 01/16/23 06:43: WBC 5.9, RBC 3.76 L, Hgb 11.6 L, Hct 34.1 L, MCV 90.7, MCH 30.9, MCHC 34.0 D, RDW Std Deviation 42.8, RDW Coeff of Johny 12.9, Plt Count 251, MPV 10.9, Immature Gran % (Auto) 0.300, Neut % (Auto) 61.1, Lymph % (Auto) 22.1, Converse % (Auto) 13.1 H, Eos % (Auto) 2.4, Baso % (Auto) 1.0, Absolute Neuts (auto) 3.6, Absolute Lymphs (auto) 1.31, Nucleated RBC % 0, Sodium 138, Potassium 3.7, Chloride 109 H, Carbon Dioxide 23.0, Anion Gap 6, BUN 7, Creatinine 0.56, Estim Creat Clear Calc 88.68, Est GFR (MDRD) Af Amer 147, Est GFR (MDRD) Non-Af 122, BUN/Creatinine Ratio 12.6, Glucose 108 H, Calcium 8.6 D/C Instructions Discharge Diet: - (Low fiber diet) Meaningful Use Info Meaningful Use Diagnoses (Choose all that apply): None applicable Discharge Plan Admission Admit Date/Time: 01/13/23 15:21 Primary Reason for Your Visit: Abdominal pain Attending Provider: Beth Ernst Primary Care Provider: Khoa Diaz Consulting Providers: Cecile Recio; Jovanna Lino Instructions Patient Instructions: Diverticulitis Dc Additional Instructions / Restrictions: DISCHARGE INSTRUCTIONS PLEASE READ *Please take this with you to your next doctors appointment* -You will need a colonoscopy on an outpatient basis, this can be scheduled after discharge typically 6 to 8 weeks after improvement -Please follow-up with Dr. Recio with surgery upon discharge in 1-2 weeks. Please call their office to schedule hospital follow-up appointment upon discharge. -Eat a diet low in fiber while recovering. -Foods to include: flake cereal, mashed potatoes, pancakes, waffles, pasta, white bread, rice, applesauce, bananas, eggs, fish, poultry, tofu, and well- cooked vegetables -Drink 6 to 8 glasses of water every day, unless told otherwise -Use a heating pad or hot water bottle to reduce abdominal cramping or pain -If you have not had a colonoscopy within the past year it is recommended that you have one in 6 to 8 weeks. This can be coordinated through your primary care physician's office -You will need a pelvic ultrasound on an outpatient basis due to a cyst seen incidentally on imaging -Please call your primary care provider's office upon discharge to schedule a hospital follow up within 1 week. -For any concerning signs or symptoms please call 911 or proceed to the nearest emergency department Discharge Orders/Prescriptions Prescriptions: New ciprofloxacin HCl 500 mg tablet 500 mg PO BID Qty: 16 0RF metronidazole 500 mg tablet 500 mg PO Q8H Qty: 24 0RF Referrals / Follow Up: Khoa Diaz MD [Primary Care Provider] - Within 1 Week Ceclie Recio MD [Med Staff - Active Staff] - Within 2 Weeks Disposition Disposition (needs filled in before D/C Order can be placed): Home, Self Care Charges/Coding Visit Charges Inpatient E&M: 91796 Disch Hosp >30min
== END 2023-01-16 11:11 | disposition home or self-care (01) | DRG 392 ==
LOC: ED 14:54 → MS3 16:44
PROVIDERS: Admitting Provider Internal Medicine; Emergency Provider Emergency Medicine; PCP Family Medicine; Visit Provider Internal Medicine
DX: K57.20 Diverticulitis of large intestine with perforation and abscess without bleeding (principal); D64.89 Other specified anemias; N83.201 Unspecified ovarian cyst, right side; Z90.49 Acquired absence of other specified parts of digestive tract; Z90.710 Acquired absence of both cervix and uterus
CPT/HCPCS: 36415; 74177; 80048; 80053; 83735; 84100; 85025; 94668; 97802; 99285; J7030; J7050; J7120; Q9967; A4216; J0744; J2405

== ENCOUNTER 2023-04-06 06:20 | Day surgery (SDC) | payer OTHER, SELFPAY ==
[2023-04-06 06:38] VITALS: BP 128/66; PULSE 69; RESP 16; TEMP 37.2; O2SAT 99; BMI 22.4
--- NOTE | 2023-04-06 06:51 | H&P.OPEN ---
[facility] - General General Date of Service: 04/06/23 HPI Narrative SURAJ TORRES, is a 53 F who presents for colonoscopy due to previous hospitalization for diverticulitis back in late December 2022. Patient denies any abdominal pain since her last office visit in January 2023. Patient's grandma was diagnosed with colon cancer but she was older than 60 at the time. Patient never had previous colonoscopy. [facility] Medical History (Updated 04/01/23 @ 13:34 by Mariann Jiménez) Broken tooth Diverticulitis of colon with perforation Hay fever History of echocardiogram Hx of diverticulitis of colon Non-smoker Pelvic cyst Wears glasses Home Medications NK 02/01/23 [History Last Taken Unknown] Allergy/AdvReac Type Severity Reaction Status Date / Time Penicillins [PCN] Allergy Rash Verified 04/01/23 13:28 Family History Father Leukemia Heart disease Mother Cancer ovarian cancer Thyroid disorder Other Breast cancer Hypertension Ovarian cancer Surgical History H/O section H/O: hysterectomy History of appendectomy History of bladder surgery Social History household members: spouse housing: house number of children: 2 Smoking Status: Never smoker alcohol intake: never substance use type: does not use Past Medical/Surgical History Planned Operation Planned Operative Procedure/s: CSCOPE S.O.S: No Previous Hospitalizations/Surgeries HX Hospitalizations: Yes (DIVERTICULITIS) HX of Surgeries: X2 APPENDECTOMY WISDOM TEETH CYSTO Any Problems With Anesthesia: No You/Your Family Experience Fever (Hyperthermia) With Anes: No Cholinesterase deficiency: No Cardiovascular Hx Chest Pain within Last 2 months: No Hx of Irregular Heartbeat and/or Afib: Yes (SLIGHT HEART MURMUR) Hx Heart Attack: No Hx Congestive Heart Failure: No Hx Rheumatic Fever: No Hx Hypertension: No Hx Internal Defibrillator: No Hx Pacemaker: No Hx Cardiac Catheterization: No Hx Cardiac Surgery/Stents/Etc.: No Hx Stress Test: No Hx Pain in Legs when Walking/Leg Cramps: No Respiratory Chronic Cough: No HX of Shortness of Breath: No Hoarseness: No Hx Chronic Obstructive Pulmonary Disease (COPD): No Hx Asthma: No Hx Emphysema: No Hx Sleep Apnea: No Hx Respiratory Tract Infection/Cold (presently): No Do You Snore Loudly (louder than talking or can be heard): No Do You Often Feel Tired/ Fatigued/ Sleepy Dring Daytime?: No Has Anyone Observed You Stop Breathing During Sleep?: No Result (for STOP score): Negative Hx Smoking: No Smoking Status: Never smoker Gastrointestinal Hx Gastrointestinal Disorders: No Hx Gastrointestinal Bleed: No Hx Ulcer: No Hx Hiatal Hernia: No Difficulty Chewing/Swallowing: No Special diet followed at home: No Hx Unplanned Weight Loss of 20#: No HX Unplanned Weight Gain of 20#: No Neurological Hx Seizures: No HX Syncope/Blackout Spells/Unconsciousness: No Hx Transient Ischemic Attacks (TIA): No Hx Multiple Sclerosis: No Hx Parkinson's Disease: No Hx Head/Neck Injury: No Hx Headaches: No Hx Back Injury/Pain: No Recent Onset of Speech Difficulty: No Restless Legs: No Does patient have nerve stimulator: No Blood Disorder Hx Leukemia: No Bleeding Tendencies: No Hx Deep Vein Thrombosis: No Hx High Cholesterol: No Blood Transmitted Disease: No Hx Hepatitis: No Hx Cirrhosis: No Hx Anemia: No Hx Blood Disorders: No Reproduction : No Is Patient Lactating: No Hx Hysterectomy: No Hx Tubal Ligation: No Are You Post Menopause: No Genitourinary Hx Renal Disease: Yes (KIDNEY STONES) Hx Dialysis: No Musculoskeletal Hx Arthritis: No Hx Rheumatoid Arthritis: No Hx Gout: No Recent Onset of an Orthopedic Problem: No Endocrine Hx Diabetes: No Thyroid Disease: No Hx Steroid Therapy: No Psycho/Social Hx Substance Use: No Hx Alcohol Use: No Hx Anxiety: No Hx Depression: No Mental Illness: No Hx Dementia: No Miscellaneous Hx Cancer: No Recent Exposure to Contagious Disease: No Hx of C-Diff: No Any Loose Teeth: No Allergies Penicillins [PCN] Allergy (Verified 04/01/23 13:28) Rash Discharge Is Pt Admitted From a [facility], or a Assisted: No After D/C, Where Do you Plan to Go: Return Home Vital Signs Vital Signs Vital Signs: 04/06/23 06:38 04/06/23 06:38 Temperature 99.0 F Temperature Source Temporal Pulse Rate 69 Respiratory Rate 16 Respiratory Pattern Normal Blood Pressure 128/66 H Blood Pressure Mean 86 Blood Pressure Source Monitor Blood Pressure Position Sitting Blood Pressure Location Left Arm Pulse Ox 99 Oxygen Delivery Method Room Air Weight Weight: 119 lb 0.794 oz Body Mass Index (BMI) 22.4 Physical Exam Const alert, oriented x3 and no apparent distress HEENT normocephalic and head/scalp atraumatic Resp normal respiratory effort Cardio regular rate GI soft to palpation and non-tender; Negative for non-distended Palpation: Negative for guarding Extremity no clubbing, cyanosis or edema Skin no rashes or lesions noted Neuro CN's II-XII intact bilaterally Psych mental status grossly normal Assessment & Plan Assessment/Plan (1) Hx of diverticulitis of colon: Surgery Risks - Colonoscopy I discussed with the patient the risks of the procedure: Yes Risks Include but are not Limited To: Risks include but are not limited to: Bleeding, perforation requiring further surgery, inability to complete colonoscopy requiring barium enema.
[2023-04-06] MEDS: Lactated Ringers 1,000 ML 15 ML IV (06:53)
--- NOTE | 2023-04-06 07:30 | COLBX_PTH ---
PATIENT: SURAJ TORRES LOC: EN U#:[id number] AGE/SX: 53/F ROOM: RE04/06/[address]: Dr. Cecile Recio MD : 1970 BED: DIS: 04/06/2023 SPEC #: [id number] RECD: 04/06/23 12:18 STATUS: PATRICK HARINDERReilly #: [id number] KELLY: 04/06/23 07:[address]: Cecile Recio DEPT: SURGICAL PATHOLOGY RECD BY: Ofelia Treadwell ENTERED: 04/06/23 12:59 SP TYPE: COLON BX OTHR DR: Dr. Khoa Diaz MD Tissues: COLON BIOPSY Procedures: Surgery Specimen Level IV HEADER OPERATION: Colonoscopy with biopsy PRE-OP DIAGNOSIS: History of diverticulitis of colon TISSUE SUBMITTED: Hepatic flexure polyp biopsy MICROSCOPIC DIAGNOSIS Hepatic flexure polyp, biopsy: Fragments of tubular adenoma. SJ:aracelis 04/07/2023 MICROSCOPIC DESCRIPTION Slides are reviewed. GROSS DESCRIPTION Received in fixative is one container labeled with the patient's name and designated hepatic flexure polyp biopsy. The specimen consists of multiple irregular fragments of light sellers soft tissue that in aggregate measure 1.0 x 0.3 x 0.1 cm. The specimen is totally submitted in one cassette. / SJ:rg 04/06/2023 TC:1 CPT: 34185
[2023-04-06 07:56] VITALS: BP 128/66; BP 99/64; PULSE 71; RESP 16; TEMP 36.2; O2SAT 99
--- NOTE | 2023-04-06 07:57 | OP.COLON_ITS ---
Patient Name: Laura Sanders Procedure Date: 04/06/2023 7:24 AM Date of : 1970 Age: 53 Procedure: Colonoscopy Indications: Follow-up of diverticulitis Providers: Cecile Recio MD Referring MD: Khoa Diaz MD Medicines: Monitored Anesthesia Care Patient Profile: This is a 53 year old female. Last Colonoscopy: none. The patient's first colonoscopy is today. Complications: No immediate complications. Procedure: Pre-Anesthesia Assessment: - Prior to the procedure, a History and Physical was performed, and patient medications and allergies were reviewed. The patient's tolerance of previous anesthesia was also reviewed. The risks and benefits of the procedure and the sedation options and risks were discussed with the patient. All questions were answered, and informed consent was obtained. Prior Anticoagulants: The patient has taken no anticoagulant or antiplatelet agents. ASA Grade Assessment: Per anesthesia. After reviewing the risks and benefits, the patient was deemed in satisfactory condition to undergo the procedure. After I obtained informed consent, the scope was passed under direct vision. Throughout the procedure, the patient's blood pressure, pulse, and oxygen saturations were monitored continuously. The colonoscope was introduced through the anus and advanced to the cecum, identified by the appendiceal orifice, ileocecal valve and palpation. The colonoscopy was performed without difficulty. The patient tolerated the procedure well. The quality of the bowel preparation was good. Scope In: 7:35:32 AM Scope Withdrawal Time 0 hours 10 minutes 5 seconds Scope Out: 7:51:32 AM Total Procedure Duration Time 0 hours 16 minutes 0 seconds Findings: Hemorrhoids were found on perianal exam. Non-bleeding internal hemorrhoids were found. The hemorrhoids were Grade I (internal hemorrhoids that do not prolapse). A less than 5 mm polyp was found in the hepatic flexure. The polyp was sessile. The polyp was removed with a cold biopsy forceps. Resection and retrieval were complete. Multiple small-mouthed diverticula were found in the sigmoid colon. The exam was otherwise without abnormality. Impression: - Hemorrhoids found on perianal exam. - Non-bleeding internal hemorrhoids. - One less than 5 mm polyp at the hepatic flexure, removed with a cold biopsy forceps. Resected and retrieved. - Diverticulosis in the sigmoid colon. - The examination was otherwise normal. Recommendation: - Discharge patient to home. - High fiber diet. - Continue present medications. - Await pathology results. - Repeat colonoscopy in 5 years for surveillance based on pathology results. Procedure Code(s): --- Professional --- 81425, Colonoscopy, flexible; with biopsy, single or multiple Diagnosis Code(s): --- Professional --- K64.0, First degree hemorrhoids D12.3, Benign neoplasm of transverse colon (hepatic flexure or splenic flexure) K57.32, Diverticulitis of large intestine without perforation or abscess without bleeding K57.30, Diverticulosis of large intestine without perforation or abscess without bleeding CPT copyright 2021 [employer]. All rights reserved. The codes documented in this report are preliminary and upon cocoa milling machine operator review may be revised to meet current compliance requirements. MD Cecile Zapien MD 04/06/2023 7:57:15 AM This report has been signed electronically. Number of Addenda: 0 Note Initiated On: 04/06/2023 7:24 AM
--- NOTE | 2023-04-06 07:57 | OP.CCLET_ITS ---
04/06/2023 Khoa Diaz MD [address] [place] [address] Re : Colonoscopy procedure for Laura Carykurtis Dear Dr. Diaz This procedure was performed on Thursday, April 06, 2023. My impressions and recommendations are as follows: Impressions : - Hemorrhoids found on perianal exam. - Non-bleeding internal hemorrhoids. - One less than 5 mm polyp at the hepatic flexure, removed with a cold biopsy forceps. Resected and retrieved. - Diverticulosis in the sigmoid colon. - The examination was otherwise normal. Recommendations : - Discharge patient to home. - High fiber diet. - Continue present medications. - Await pathology results. - Repeat colonoscopy in 5 years for surveillance based on pathology results. My findings are described in the full procedure note, which is enclosed. If I can be of further assistance, please feel free to contact me at Doctor phone number(s): , Work: . Sincerely, MD Cecile Zapien MD 04/06/2023 7:57:15 AM This report has been signed electronically.
[2023-04-06 08:00] VITALS: BP 103/67; BP 128/66; PULSE 69; RESP 16; O2SAT 100
[2023-04-06 08:05] VITALS: BP 106/67; BP 128/66; PULSE 66; RESP 16; O2SAT 100
[2023-04-06 08:08] VITALS: BP 105/63; BP 128/66; PULSE 68; RESP 16; TEMP 36.2; O2SAT 100
[2023-04-06 08:34] VITALS: BP 128/66
== END 2023-04-06 08:48 | disposition home or self-care (01) ==
LOC: EN 06:20 → AC 06:21
PROVIDERS: PCP Family Medicine; Referring Provider Family Medicine; Visit Provider Surgery
PROC: 0DJD8ZZ Inspection of Lower Intestinal Tract, Via Natural or Artificial Opening Endoscopic (ICD-10-PCS; CPT 45378; principal; 2023-04-06 07:25)
DX: D12.3 Benign neoplasm of transverse colon (principal); K57.30 Diverticulosis of large intestine without perforation or abscess without bleeding; K64.0 First degree hemorrhoids; Z80.0 Family history of malignant neoplasm of digestive organs
CPT/HCPCS: 45380; 88305; J7120; A4216; J2405

== ENCOUNTER → 2024-05-29 | Outpatient (CLI) | payer OTHER, SELFPAY ==
[2024-05-29 11:03] LABS: AST(SGOT) 23 U/L (15-37); Alanine Aminotransfer ALT/SGPT 32 U/L (13-56); Albumin, Serum 3.7 g/dL (3.2-5.0); Alkaline Phosphatase 66 U/L (45-117); Anion Gap 6 (5-15); BUN 18 mg/dL (7-18); BUN/Creat Ratio 26.7 RATIO (10-20); Calcium,Total 9.9 mg/dL (8.5-10.1); Chloride 106 mmol/L (98-107); Cholesterol 193 mg/dL (200); Creatinine, Serum 0.67 mg/dL (0.55-1.02); EST Glomerular Filtration Rate 97 mL/min (>60); Est Glom Filt Rate - Afr Amer 117 mL/min (>60); Globulin 3.7 g/dL (2.2-4.2); Glucose 92 mg/dL (74-106); High Density Lipoprotein 66 mg/dL; Potassium 4.1 mmol/L (3.5-5.1); Protein, Total 7.4 g/dL (6.4-8.2); Sodium Level 141 mmol/L (136-145); Triglycerides 41 mg/dL; Very Low Density Lipoprotein 8 mg/dL (5-40)
== END | disposition home or self-care (01) ==
LOC: MTLAB 08:27
PROVIDERS: PCP Family Medicine; Referring Provider Family Medicine; Visit Provider Family Medicine
DX: Z00.00 Encounter for general adult medical examination without abnormal findings (principal); R53.83 Other fatigue
CPT/HCPCS: 36415; 80053; 80061; 82533